=== PATIENT | female | born 1940 | race Caucasian/White ===

== ENCOUNTER 2016-07-07 07:20 | Inpatient (IN) | payer MEDICARE, BC ==
--- NOTE | ~2016-07-07 | DS ---
Discharge Summary [address] [place]. [address] NAME: PERLA LUGO : 38 STATUS : DIS IN PAT#: [id number] AGE: 75 ADM/REG DATE : 07/07/16 MR#: [id number] REPORT SERV DATE: 07/12/16 DICTATED BY: STEFANY BRADY DATE: 07/11/16 REPORT STATUS : Draft TRANSCRIBED BY: JN DATE: 07/11/16 ADMISSION DATE: 07/07/2016 DISCHARGE DATE: 07/11/2016 CONSULTATIONS: 1. Cardiology, Dr. Patton. 2. Psychiatry, Brando Weir. 3. Glycerin Operator, Dr. Chaparro Christian. PROCEDURE: Left heart catheterization. IMPRESSION: 1. 4 x 4 patent graft. 2. Graft to distal RCA supplies to BPLBs. This graft is small in caliber, but maintains SARA-3 flow, with no obvious obstruction to flow. 3. No venogram was given secondary to chronic kidney disease. 4. Left ventricular end-diastolic pressure 13 mmHg. 5. 130 mL dye used. RECOMMENDATIONS: 1. Aspirin daily. 2. Coronary artery disease risk factors modification with appropriate lifestyle changes. DISCHARGE DIAGNOSES: 1. Atrial fibrillation with rapid ventricular response, elevated troponin due to demand ischemia. 2. History of coronary artery disease with history of CABG x4. 3. Bipolar disorder. 4. Obstructive sleep apnea. 5. Chronic obstructive pulmonary disease exacerbation with ongoing tobacco use. 6. Urinary tract infection. 7. Heart failure with reduced EF 40%. 8. Gastroesophageal reflux disease. 9. Scoliosis with chronic pain syndrome. 10.History of osteoporosis. DISCHARGE CONDITION: Stable. HISTORY OF PRESENT ILLNESS: For detailed HPI, please make reference to Dr. Jose Cortes's dictation on 07/03/2016. In brief, this is a 75-year-old female with medical history of COPD and ongoing tobacco use, who presented to the hospital with complaints of generalized weakness, fever, and chills, who was also found to have a heart rate of 112 in atrial flutter in the ER. The patient was admitted to the Hospitalist Service at [facility] for further management. HOSPITAL COURSE: Discharge Summary [address] [place]. [address] NAME: PERLA LUGON : 38 STATUS : DIS IN PAT#: [id number] AGE: 75 ADM/REG DATE : 07/07/16 MR#: [id number] REPORT SERV DATE: 07/12/16 DICTATED BY: STEFANY BRADY DATE: 07/11/16 REPORT STATUS : Draft TRANSCRIBED BY: JN DATE: 07/11/16 1. Atrial fibrillation with RVR. The patient was started on diltiazem drip. The patient's home-dose diltiazem was titrated up. The patient's blood pressure was initially low 80/50, but responded to gentle IV fluids. Cardiology was consulted, recommended an echocardiogram, which shows moderately decreased left ventricular systolic function with estimated ejection fraction of 40%. Also noted was a disproportionate septal and apical left ventricular hypertrophy suggestive of hypertrophic cardiomyopathy. Also noted was possible mild bilateral left ventricular aneurysm, normal right ventricular size, and low normal systolic function. A catheter/ICD lead noted in the right ventricle with mild TR/AR. Cardiology subsequently recommended a left heart catheterization. Left heart catheterization was done, results as noted above. The patient was started on p.o. amiodarone and beta- antoine. Coreg was subsequently titrated up. The patient's heart rate trended down into the low 90s and remained stable. Per Cardiology, the patient will return as an outpatient on 07/14/2016 for possible ALFA and cardioversion. The patient also received Eliquis p.o. for chronic anticoagulation. 2. Urinary tract infection. The patient's urinalysis was positive for leukocyte esterase. The patient was started on broad-spectrum antibiotics. The patient's urine culture grew E coli sensitive to Ceftin. The patient was transitioned from IV Rocephin to p.o. Ceftin. At the time of discharge, the patient had completed a total of seven days' period of antibiotics. 3. COPD exacerbation. The patient was noted to have some bilateral wheezing. The patient was started on empiric IV steroids. The patient was transitioned to p.o. steroids. The patient had completed a five-day duration of prednisone throughout this admission. The patient was not discharged home on any steroid taper at the time of discharge. The patient was advised to continue DuoNebs and continue ongoing tobacco cessation. 4. Bipolar disorder. The patient was noted to have bipolar disorder while at [facility] in [place]. Psychiatry was consulted. Recommended to start the patient on Abilify. The patient was reported to have significant improvement in bipolar changes. No evidence of suicidal ideation or homicidal ideation at the time of discharge. Psychiatry recommended the patient to continue Abilify 5 mg p.o. q.h.s. and follow up with her primary psychiatry as an outpatient. 5. Gastroesophageal reflux disease. The patient was continued on PPI throughout the course of admission. 6. Hypothyroidism. The patient's levothyroxine 50 mcg daily was continued throughout the course of this admission. 7. Physical deconditioning. The patient was evaluated by PT, recommended acute rehab. The patient will be discharged to [facility]. DISCHARGE MEDICATIONS: 1. Eliquis 5 mg p.o. b.i.d. 2. Aspirin 81 mg p.o. daily. 3. Lipitor 20 mg p.o. at bedtime. 4. Coreg 12.5 mg p.o. daily. 5. Docusate 100 mg p.o. b.i.d. 6. Cymbalta 60 mg p.o. b.i.d. 7. Levothyroxine 50 mcg p.o. daily. 8. Abilify 5 mg p.o. daily. Discharge Summary [address] [address] NAME: PERLA LUGO : 38 STATUS : DIS IN PAT#: [id number] AGE: 75 ADM/REG DATE : 07/07/16 MR#: [id number] REPORT SERV DATE: 07/12/16 DICTATED BY: STEFANY BRADY DATE: 07/11/16 REPORT STATUS : Draft TRANSCRIBED BY: JN DATE: 07/11/16 9. Symbicort one puff daily. DISCHARGE CONDITION: Stable. DISCHARGE DISPOSITION: [facility] [place]. Greater than 35 minutes was used to prepare this patient's discharge, reconcile medication, and advise the patient on discharge plans and followup. DICTATED BY: MD RAGHAV Boyer/JN Stefany Brady MD / [id number] CC: MD Apoorva Boyer M.D.
--- NOTE | ~2016-07-07 | CN ---
Consultation Report [facility] [address] [place]. [address] NAME: PERLA VILA : 38 STATUS : ADM IN PAT#: [id number] AGE: 75 ADM/REG DATE : 07/07/16 MR#: [id number] REPORT SERV DATE: 07/07/16 DICTATED BY: DONNELL DANIEL DATE: 07/07/16 REPORT STATUS : Draft TRANSCRIBED BY: MODL DATE: 07/07/16 ELECTROPHYSIOLOGY CONSULTATION DATE OF CONSULTATION: 07/07/2016 REASON FOR CONSULTATION: Regarding atrial dysrhythmia and decreased LV systolic function. HISTORY OF PRESENT ILLNESS: Ms. Vila is a pleasant 75-year-old woman, who presented to [facility] with complaints of fever and was found to have a urinary tract infection. In that setting, she was noted to have an atrial fibrillation/flutter pattern with a rapid ventricular response. An echocardiogram revealed that she had a diminished LV systolic function with ejection fraction measured at 40% and questions of a basal left ventricular aneurysm. The patient was treated for her UTI, and her symptoms improved. She was transferred here today to undergo cardiac catheterization to rule out significant coronary disease as a source of the decrease in LV systolic function. The patient has a known history of sick sinus syndrome and is status post permanent pacemaker. She also has a known history of atrial fibrillation and atrial flutter and is on apixaban for CVA prophylaxis and sotalol for maintenance of sinus rhythm. Both the apixaban and the sotalol were discontinued. The patient was started on amiodarone first intravenously and now orally for treatment of the atrial fibrillation and flutter. During her stay at [facility], the patient received ibutilide, which did terminate the atrial fibrillation/flutter, but she had early recurrence of the atrial fibrillation. PAST MEDICAL HISTORY: Notable for: 1. Sick sinus syndrome, status post permanent pacemaker. 2. History of paroxysmal atrial fibrillation and flutter, treated with apixaban for CVA prophylaxis and with sotalol 80 mg p.o. b.i.d. 3. History of coronary disease, which was non-flow limiting by cardiac catheterization in 05/2015. 4. History of mixed hyperlipidemia. 5. Hypothyroidism. 6. Scoliosis. 7. Chronic back pain, spinal stenosis. 8. GE reflux disease. CURRENT MEDICATIONS: Include albuterol, apixaban, atorvastatin, BuSpar, Cymbalta, levothyroxine, metoprolol, and sotalol 80 mg b.i.d. FAMILY HISTORY: Noncontributory. Negative for premature coronary disease. SOCIAL HISTORY: The patient is a smoker. Negative for alcohol or recreational drug use. REVIEW OF SYSTEMS: Consultation Report [facility] [address] [place]. [address] NAME: PERLA VILA : 38 STATUS : ADM IN PAT#: [id number] AGE: 75 ADM/REG DATE : 07/07/16 MR#: [id number] REPORT SERV DATE: 07/07/16 DICTATED BY: DONNELL DANIEL DATE: 07/07/16 REPORT STATUS : Draft TRANSCRIBED BY: JN DATE: 07/07/16 As noted above. All other systems reviewed and negative. PHYSICAL EXAMINATION: VITAL SIGNS: Blood pressure of 115/70; pulse of 100, in what appears to be atrial fibrillation versus an atypical atrial flutter, cannot completely exclude typical atrial flutter; respirations 18. GENERAL: Well developed, well nourished, in no acute distress. HEENT: No icterus. Good dentition. NECK: Supple. No masses or thyromegaly. LUNGS: Breathing comfortably. No rales or wheezes. COR: Irregularly irregular rhythm. ABD: Soft, nondistended, nontender. No hepatosplenomegaly. EXT: No clubbing, cyanosis, or edema. Peripheral pulses 2+/= bilaterally. SKIN: Warm and dry. No visible lesions. MS: Chest wall without deformity. No obvious clavicular fractures. NEURO/PSYCH: Oriented x3. No anxiety or depression. DATA: Echocardiogram during this admission at [facility] showed an ejection fraction of 40%, disproportionate septal and apical hypertrophy, history of possible mild basal lateral left ventricular aneurysm. LABORATORY VALUES: Creatinine was 1.15. Electrolytes within normal limits. White count, hemoglobin, and platelet count all within normal limits. IMPRESSION: A pleasant 75-year-old woman, who presented to [facility] with febrile illness and signs of urinary tract infection. This was treated with antibiotics. In this setting, she was also noted to have atrial fibrillation and possibly an atypical atrial flutter with rapid ventricular response and additionally was noted to have a decrease in LV systolic function with ejection fraction of 40%. She has been transferred to [facility]. She is already receiving p.o. amiodarone in place of sotalol, which she had previously been taking. She is to undergo cardiac catheterization today to rule out significant coronary artery disease. After the cardiac catheterization, we will plan on restarting her apixaban. Most likely, we will have the patient go home with amiodarone and apixaban and plan for ALFA cardioversion as an outpatient after the amiodarone has had sufficient time to come to steady state. She will also be treated for other aspects of coronary disease and decreased LV systolic function with appropriate medications. DANE/JN Donnell Daniel M.D. / [id number] Consultation Report [address] [address] NAME: PERLA VILA : 38 STATUS : ADM IN PAT#: [id number] AGE: 75 ADM/REG DATE : 07/07/16 MR#: [id number] REPORT SERV DATE: 07/07/16 DICTATED BY: DONNELL DANIEL DATE: 07/07/16 REPORT STATUS : Draft TRANSCRIBED BY: JN DATE: 07/07/16 CC: MD Apoorva Boyer M.D.
[~2016-07-07 07:20] MED LIST: ALAVERT10 MG PO; AMB10 PO; AMBIEN CR12.5 MG PO; ASAB PO; ASAEC PO; BEN25 PO; BETAPACE80 PO; BUSPAR5 PO; CYMBALTA60 PO; D.O.S.100 MG PO; DURA25 TOP; ELIQUIS 5 MG TAB5 MG PO; ISORDIL10 PO; KADIAN10 MG PO; LEVOTHYROXIN50 MCG PO; LIPITOR20 PO; LOP25 PO; NITROSTAT0.4 MG SL; OTC ALLERGY RELIEF; OXYCONTIN15 MG PO; PERCOCET1 TA4 PO; PROAIR HFA INH; PROTONIX PO; SYMBICORT 160/41 INH INH; TRAZ50 PO; V5 PO; X5 PO; ZOCOR20 PO; [UNRECOGNIZED DRUG - REMARK]
[2016-07-08 05:23] LABS: BASOPHILS 0 %; EOSINOPHILS 0 %; HEMOGLOBIN 9.3 g/dL (12.0-16.0); IMMATURE GRANULOCYTES 0.5 %; IMMATURE GRANULOCYTES ABSOLUTE 0.04 10/3/uL (0.0-0.11); LYMPHOCYTES 14.8 %; LYMPHOCYTES ABSOLUTE 1.22 10/3/uL (0.67-4.30); MEAN CORPUS HGB CONC 33.3 g/dL (32.0-36.0); MEAN CORPUSCULAR HEMOGLOB 30.6 pg (26.0-34.0); MEAN CORPUSCULAR VOLUME 91.8 fL (80-100); MEAN PLATELET VOLUME 10.8 fL (9.2-13.0); MONOCYTES 8.6 %; MONOCYTES ABSOLUTE 0.71 10/3/uL (0.21-1.20); NEUTROPHILS 76.1 %; NEUTROPHILS ABSOLUTE 6.29 10/3/uL (2.02-8.40); PLATELET COUNT 274 10/3/uL (150-400); RBC DISTRIBUTION WIDTH 14.6 % (12.0-16.0); RED CELL COUNT 3.04 10/6/uL (4.0-5.6); WHITE BLOOD CELLS 8.3 10/3/uL (4.5-10.5)
[2016-07-08 05:27] LABS: HEMATOCRIT 27.9 % (36.0-48.0); MANUAL DIFF NO %
[2016-07-08 05:39] LABS: BUN (BLOOD UREA NITROGEN) 20 MG/DL (6-23); CALCIUM, SERUM 8.3 MG/DL (8.5-10.4); CHLORIDE, SERUM 111 MMOL/L (96-112); CO2 (CARBON DIOXIDE) 24 MMOL/L (24-34); CREATININE 1.06 MG/DL (0.55-1.02); GFR AFRICAN AMERICAN 59 ML/MIN (>=60); GFR NON AFRICAN AMERICAN 51 ML/MIN (>=60); PHOSPHORUS, SERUM 2.7 MG/DL (2.5-4.5); SODIUM, SERUM 143 MMOL/L (135-148)
[2016-07-08 05:41] LABS: GLUCOSE, SERUM 135 MG/DL (60-99); POTASSIUM, SERUM 4.6 MMOL/L (3.5-5.3)
[2016-07-09 04:47] LABS: BASOPHILS 0 %; EOSINOPHILS 0.2 %; EOSINOPHILS ABSOLUTE 0.01 10/3/uL (0.0-0.53); HEMATOCRIT 27.4 % (36.0-48.0); HEMOGLOBIN 9.2 g/dL (12.0-16.0); IMMATURE GRANULOCYTES 0.8 %; IMMATURE GRANULOCYTES ABSOLUTE 0.05 10/3/uL (0.0-0.11); LYMPHOCYTES 21.4 %; LYMPHOCYTES ABSOLUTE 1.27 10/3/uL (0.67-4.30); MEAN CORPUS HGB CONC 33.6 g/dL (32.0-36.0); MEAN CORPUSCULAR HEMOGLOB 30.7 pg (26.0-34.0); MEAN CORPUSCULAR VOLUME 91.3 fL (80-100); MEAN PLATELET VOLUME 10.4 fL (9.2-13.0); MONOCYTES 11.3 %; MONOCYTES ABSOLUTE 0.67 10/3/uL (0.21-1.20); NEUTROPHILS 66.3 %; NEUTROPHILS ABSOLUTE 3.93 10/3/uL (2.02-8.40); PLATELET COUNT 290 10/3/uL (150-400); WHITE BLOOD CELLS 5.9 10/3/uL (4.5-10.5)
[2016-07-09 04:48] LABS: MANUAL DIFF NO %
[2016-07-09 04:55] LABS: BUN (BLOOD UREA NITROGEN) 19 MG/DL (6-23); CHLORIDE, SERUM 111 MMOL/L (96-112); CO2 (CARBON DIOXIDE) 27 MMOL/L (24-34); CREATININE 1.03 MG/DL (0.55-1.02); GFR AFRICAN AMERICAN 61 ML/MIN (>=60); GFR NON AFRICAN AMERICAN 52 ML/MIN (>=60); PHOSPHORUS, SERUM 2.7 MG/DL (2.5-4.5); SODIUM, SERUM 143 MMOL/L (135-148)
[2016-07-09 04:56] LABS: GLUCOSE, SERUM 106 MG/DL (60-99)
[2016-07-10 05:30] LABS: BASOPHILS 0 %; EOSINOPHILS 0.8 %; EOSINOPHILS ABSOLUTE 0.06 10/3/uL (0.0-0.53); HEMATOCRIT 28.8 % (36.0-48.0); HEMOGLOBIN 9.6 g/dL (12.0-16.0); IMMATURE GRANULOCYTES 0.6 %; IMMATURE GRANULOCYTES ABSOLUTE 0.05 10/3/uL (0.0-0.11); LYMPHOCYTES ABSOLUTE 1.73 10/3/uL (0.67-4.30); MANUAL DIFF NO %; MEAN CORPUS HGB CONC 33.3 g/dL (32.0-36.0); MEAN CORPUSCULAR HEMOGLOB 30.5 pg (26.0-34.0); MEAN CORPUSCULAR VOLUME 91.4 fL (80-100); MEAN PLATELET VOLUME 10.3 fL (9.2-13.0); MONOCYTES 8.3 %; MONOCYTES ABSOLUTE 0.65 10/3/uL (0.21-1.20); NEUTROPHILS 68.3 %; NEUTROPHILS ABSOLUTE 5.37 10/3/uL (2.02-8.40); PLATELET COUNT 294 10/3/uL (150-400); RED CELL COUNT 3.15 10/6/uL (4.0-5.6); WHITE BLOOD CELLS 7.9 10/3/uL (4.5-10.5)
[2016-07-10 05:34] LABS: CALCIUM, SERUM 7.9 MG/DL (8.5-10.4); CHLORIDE, SERUM 106 MMOL/L (96-112); CO2 (CARBON DIOXIDE) 24 MMOL/L (24-34); CREATININE 0.87 MG/DL (0.55-1.02); GFR AFRICAN AMERICAN 74 ML/MIN (>=60); GFR NON AFRICAN AMERICAN 64 ML/MIN (>=60); GLUCOSE, SERUM 97 MG/DL (60-99); PHOSPHORUS, SERUM 2.1 MG/DL (2.5-4.5); SODIUM, SERUM 139 MMOL/L (135-148)
[2016-07-10 05:35] LABS: BUN (BLOOD UREA NITROGEN) 14 MG/DL (6-23)
[2016-07-14] MEDS ORDERED: CORDARONE PO (11:47)
[2016-07-14] MEDS ORDERED: PRIN2.5 PO (11:48)
[2016-07-14] MEDS ORDERED: COREG12 PO (11:49)
[2016-07-14] MEDS ORDERED: HABIT14 TOP (11:50)
[2016-07-14] MEDS ORDERED: ABILIFY5 PO (11:51)
[2016-07-14] MEDS ORDERED: ATV1 PO (11:54)
== END 2016-07-11 17:05 | DRG 286 ==
LOC: CORLMH 07:20 → SSU1 09:16 → 5NO 16:28
PROVIDERS: Hospitalist
PROC: 4A023N7 Measurement of Cardiac Sampling and Pressure, Left Heart, Percutaneous Approach (ICD-10-PCS; principal; 2016-07-07)
PROC: B2111ZZ Fluoroscopy of Multiple Coronary Arteries using Low Osmolar Contrast (ICD-10-PCS; 2016-07-07)
PROC: B2151ZZ Fluoroscopy of Left Heart using Low Osmolar Contrast (ICD-10-PCS; 2016-07-07)
DX: I25.10 Atherosclerotic heart disease of native coronary artery without angina pectoris (principal); I50.23 Acute on chronic systolic (congestive) heart failure; I48.4 Atypical atrial flutter; I49.5 Sick sinus syndrome; N39.0 Urinary tract infection, site not specified; J44.1 Chronic obstructive pulmonary disease with (acute) exacerbation; Z88.0 Allergy status to penicillin; Z88.2 Allergy status to sulfonamides; Z95.0 Presence of cardiac pacemaker; E78.2 Mixed hyperlipidemia; E03.9 Hypothyroidism, unspecified; M41.9 Scoliosis, unspecified; K21.9 Gastro-esophageal reflux disease without esophagitis; I48.0 Paroxysmal atrial fibrillation; F17.210 Nicotine dependence, cigarettes, uncomplicated; F31.9 Bipolar disorder, unspecified; G47.33 Obstructive sleep apnea (adult) (pediatric); G89.4 Chronic pain syndrome; Z79.01 Long term (current) use of anticoagulants
CPT/HCPCS: 36600; 71010; 80048; 80061; 80076; 81001; 82550; 82565; 82805; 83735; 83880; 84100; 84145; 84443; 84484; 85025; 85347; 85610; 85730; 86140; 87077; 87086; 87186; 93005; 93306; 93458; 94640; 96365; 96366; 96375; 96376; 97110-GP; 97161-GP; 97530-GP; 99152; 99285; A9270-GY; C1769; C1894; G8978-CK-GP; G8979-CJ-GP; G8979-CK-GP; G8980-CJ-GP; J0282; J1742; J1940; J2250; J2930; J3010; J3475; Q9967